=== PATIENT | male | born 1985 | race American Indian/Alaskan Native ===

== ENCOUNTER 2019-07-14 19:54 | Emergency (ER) | payer SELFPAY ==
--- NOTE | 2019-07-14 21:16 | XRay Report ---
CHEST 2 VIEWS INDICATION: cough x2 wks. COMPARISON: None FINDINGS: Support devices: None. Heart: Within normal limits. Lungs: Patchy airspace process present right upper lobe. Bronchovascular markings are prominent Pleur a: No significant pleural effusion. No pneumothorax. Additional findings: None. IMPRESSION: 1. Airspace process right upper lobe, worrisome for pneumonia Signer Name: Babak Angeles MD Signed: 07/14/2019 9:11 PM Workstation Name: [id number]
[2019-07-14 21:19] VITALS: BP 137/90
--- NOTE | 2019-07-14 21:39 | Emergency Department Report ---
- General Chief Complaint: Upper Respiratory Infection Stated Complaint: SOB/DRY COUGH Time Seen by Provider: 07/14/19 20:29 Source: patient Mode of arrival: Ambulatory Limitations: No Limitations - History of Present Illness Initial Comments: Patient is a 34-year-old male presents emergency room with complaints of a dry cough that began a week ago. He states that over the last couple days he has not been able to smell or taste very much. He states that occasionally he does feel short of breath. He denies any nausea, vomiting, fever, diarrhea, sore throat, ear pain. He denies any known sick contacts. He denies any recent travel. He denies any past medical history or allergies to medications. He is a non-smoker. He states that he does drink twice a week. - Related Data Previous Rx's Medication Instructions Recorded Last Taken Type Amoxicillin/Potassium Clav 1 each PO BID 7 Days #14 tablet 07/14/19 Unknown Rx [Augmentin 875-125 Tablet] Azithromycin [Zithromax TAB] 250 mg PO QDAY 5 Days #6 tablet 07/14/19 Unknown Rx Hydroxychloroquine [Plaquenil] 200 mg PO QDAY 5 Days #12 tablet 07/14/19 Unknown Rx Zinc Sulfate 220 mg PO DAILY 5 Days #5 capsule 07/14/19 Unknown Rx Allergies Allergy/AdvReac Type Severity Reaction Status Date / Time shellfish derived Allergy Swelling Verified 07/14/19 20:02 ED Review of Systems ROS: Stated complaint: SOB/DRY COUGH Other details as noted in HPI Comment: All other systems reviewed and negative ED Past Medical Hx - Past Medical History Previous Medical History?: No - Surgical History Past Surgical History?: No - Social History Smoking Status: Never Smoker Substance Use Type: Alcohol - Medications Home Medications: Home Medications Medication Instructions Recorded Confirmed Last Taken Type Amoxicillin/Potassium Clav 1 each PO BID 7 Days #14 tablet 07/14/19 Unknown Rx [Augmentin 875-125 Tablet] Azithromycin [Zithromax TAB] 250 mg PO QDAY 5 Days #6 tablet 07/14/19 Unknown Rx Hydroxychloroquine [Plaquenil] 200 mg PO QDAY 5 Days #12 tablet 07/14/19 Unknown Rx Zinc Sulfate 220 mg PO DAILY 5 Days #5 capsule 07/14/19 Unknown Rx ED Physical Exam - General Limitations: No Limitations General appearance: alert, in no apparent distress - Head Head exam: Present: atraumatic, normocephalic - Eye Eye exam: Present: normal appearance - ENT ENT exam: Present: mucous membranes moist - Respiratory Respiratory exam: Present: normal lung sounds bilaterally. Absent: respiratory distress, wheezes, rales, rhonchi, stridor, chest wall tenderness, accessory muscle use, decreased breath sounds, prolonged expiratory - Cardiovascular Cardiovascular Exam: Present: normal rhythm, tachycardia, normal heart sounds. Absent: systolic murmur, diastolic murmur, rubs, gallop - Neurological Exam Neurological exam: Present: alert, oriented X3 - Psychiatric Psychiatric exam: Present: normal affect, normal mood - Skin Skin exam: Present: warm, dry, intact ED Course Vital Signs 07/14/19 07/14/19 20:02 21:18 Temperature 99.2 F 98.1 F Pulse Rate 100 H 93 H Respiratory 18 17 Rate Blood Pressure 170/97 Blood Pressure 137/90 [Right] O2 Sat by Pulse 94 97 Oximetry ED Medical Decision Making - Lab Data Result diagrams: 07/14/19 21:20 07/14/19 21:20 Lab Results 07/14/19 07/14/19 07/14/19 Range/Units 21:20 21:20 21:20 WBC 3.7 L (4.5-11.0) K/mm3 RBC 5.82 H (3.65-5.03) M/mm3 Hgb 14.8 (11.8-15.2) gm/dl Hct 45.5 (35.5-45.6) % MCV 78 L (84-94) fl MCH 25 L (28-32) pg MCHC 33 (32-34) % RDW 14.6 (13.2-15.2) % Plt Count 169 (140-440) K/mm3 Lymph % (Auto) 37.2 H (13.4-35.0) % [place] % (Auto) 11.3 H (0.0-7.3) % Eos % (Auto) 1.2 (0.0-4.3) % Baso % (Auto) 0.5 (0.0-1.8) % Lymph # 1.4 (1.2-5.4) K/mm3 [place] # 0.4 (0.0-0.8) K/mm3 Eos # 0.0 (0.0-0.4) K/mm3 Baso # 0.0 (0.0-0.1) K/mm3 Seg Neutrophils % 49.8 (40.0-70.0) % Seg Neutrophils # 1.8 (1.8-7.7) K/mm3 Sodium 140 (137-145) mmol/L Potassium 3.8 (3.6-5.0) mmol/L Chloride 102.3 (98-107) mmol/L Carbon Dioxide 21 L (22-30) mmol/L Anion Gap 21 mmol/L BUN 12 (9-20) mg/dL Creatinine 0.9 (0.8-1.5) mg/dL Estimated GFR > 60 ml/min BUN/Creatinine Ratio 13 % Glucose 104 H (75-100) mg/dL Calcium 9.4 (8.4-10.2) mg/dL Ferritin 185.1 (13.0-400.0) ng/mL Total Bilirubin 0.30 (0.1-1.2) mg/dL AST 33 (5-40) units/L ALT 38 (7-56) units/L Alkaline Phosphatase 70 (35-129) units/L Lactate Dehydrogenase 255 H (91-180) units/L C-Reactive Protein 0.50 (0.00-1.30) mg/dL Total Protein 7.7 (6.3-8.2) g/dL Albumin 4.3 (3.9-5) g/dL Albumin/Globulin Ratio 1.3 % - EKG Data EKG shows normal: sinus rhythm, axis, intervals, QRS complexes, ST-T waves Rate: normal - EKG Data 07/14/19 23:19 no STEMI QTc is 435 - Radiology Data Radiology results: report reviewed CHEST 2 VIEWS INDICATION: cough x2 wks. COMPARISON: None FINDINGS: Support devices: None. Heart: Within normal limits. Lungs: Patchy airspace process present right upper lobe. Bronchovascular markings are prominent Pleura: No significant pleural effusion. No pneumothorax. Additional findings: None. IMPRESSION: 1. Airspace process right upper lobe, worrisome for pneumonia Signer Name: Babak Angeles MD Signed: 07/14/2019 9:11 PM Workstation Name: [id number] Transcribed By: TOM Dictated By: Babak Angeles MD Electronically Authenticated By: Babak Angeles MD Signed Date/Time: 07/14/192110 DD/ 10 TD/TT: - Medical Decision Making Patient is a 34-year-old male presents emergency room with complaints of a dry cough that began a week ago. He states that over the last couple days he has not been able to smell or taste very much. He states that occasionally he does feel short of breath. He denies any nausea, vomiting, fever, diarrhea, sore throat, ear pain. He denies any known sick contacts. He denies any recent travel. He denies any past medical history or allergies to medications. He is a non-smoker. He states that he does drink twice a week. Initial vitals with mild tachycardia, oxygen saturation was 94% on room air. On repeat heart rate is normal and oxygen saturation is 97%. CXR: 1. Airspace process right upper lobe, worrisome for pneumonia. Labs with mildly decreased white blood cell count, increased lymphocytes, elevated LDH. Patient was ambulated and the emergency department for 6 minutes and maintain oxygen saturation between 94 and 97% on room air and did not get short of breath. Due to being in the middle of a COVID 19 pandemic, COVID 19 could be the cause of patient's pneumonia, we do not have rapid testing at this facility. Patient under investigation form filled out with the [facility] and it was scanned into the patient's chart as well. discussed case with Dr. Carr, ER attending who re commended community-acquired pneumonia treatment and to treat patient with Plaquenil and zinc. Screening EKG performed due to treatment and QTc is 435. Patient given prescription for Augmentin, azithromycin, Plaquenil, zinc. advisd pt Please take medication as prescribed. Increase your water intake. May get a pulse oximetry [id number] to use at home and to watch your oxygen saturation, your saturation should be above 94%. Please return to the emergency room immediately for any new or worsening symptoms including but not limited to worsening shortness of breath, high fevers, unable to tolerate by mouth intake, chest pain, dizziness, passing out, etc. Please self quarantine for 2 weeks and do not go out in public. If you are around others at home please wear a mask. Please wash your hands frequently and wipe everything down. If you must cough or sneeze do so in a napkin and throw it away and immediately wash your hands. - Differential Diagnosis PNA, URI, bronchitis, viral syndrome, COVID-19 Critical care attestation.: If time is entered above; I have spent that time in minutes in the direct care of this critically ill patient, excluding procedure time. ED Disposition Clinical Impression: SOB (shortness of breath), Dry cough, Suspected COVID-19 virus infection Pneumonia Qualifiers: Pneumonia type: due to unspecified organism Laterality: right Lung location: upper lobe of lung Qualified Code(s): J18.9 - Pneumonia, unspecified organism Disposition: TO HOME OR SELFCARE Is pt being admited?: No Does the pt Need Aspirin: No Condition: Stable Instructions: COVID-19, Community-acquired Pneumonia (ED) Additional Instructions: Please take medication as prescribed. Increase your water intake. May get a pulse oximetry [id number] to use at home and to watch your oxygen saturation, your saturation should be above 94%. Please return to the emergency room immediately for any new or worsening symptoms including but not limited to worsening shortness of breath, high fevers, unable to tolerate by mouth intake, chest pain, dizziness, passing out, etc. Please self quarantine for 2 weeks and do not go out in public. If you are around others at home please wear a mask. Please wash your hands frequently and wipe everything down. If you must cough or sneeze do so in a napkin and throw it away and immediately wash your hands. Prescriptions: Amoxicillin/Potassium Clav [Augmentin 875-125 Tablet] 1 each PO BID 7 Days #14 tablet Hydroxychloroquine [Plaquenil] 200 mg PO QDAY 5 Days #12 tablet Zinc Sulfate 220 mg PO DAILY 5 Days #5 capsule Azithromycin [Zithromax TAB] 250 mg PO QDAY 5 Days #6 tablet Referrals: SAM MONTEZ MD [Staff Physician] - 2-3 Days [facility] [Outside] - 2-3 Days [facility] [Outside] - 2-3 Days [facility] [Provider Group] - 2-3 Days Time of Disposition: 23:01 Print Language: ROMANSH
[2019-07-14 21:42] LABS: Basophils % (Auto) 0.5 % (0.0-1.8); Eosinophils % (Auto) 1.2 % (0.0-4.3); Hematocrit 45.5 % (35.5-45.6); Hemoglobin 14.8 gm/dl (11.8-15.2); Lymphocytes # (Auto) 1.4 K/mm3 (1.2-5.4); Lymphocytes % (Auto) 37.2 % (13.4-35.0); Mean Corpuscular HGB Conc 33 % (32-34); Mean Corpuscular Volume 78 fl (84-94); Monocytes # (Auto) 0.4 K/mm3 (0.0-0.8); Monocytes % (Auto) 11.3 % (0.0-7.3); Platelet Count 169 K/mm3 (140-440); Red Blood Count 5.82 M/mm3 (3.65-5.03); Red Cell Distribution Width 14.6 % (13.2-15.2)
[2019-07-14 22:00] LABS: Alanine Aminotransferase 38 units/L (7-56); Albumin 4.3 g/dL (3.9-5); BUN/Creatinine Ratio 13; Blood Urea Nitrogen 12 mg/dL (9-20); Calcium 9.4 mg/dL (8.4-10.2); Hemolysis Index 8
== END 2019-07-14 23:20 | disposition home or self-care (01) ==
LOC: ED 19:54
DX: J18.9 Pneumonia, unspecified organism (principal)
CPT/HCPCS: 36415; 71046; 80053; 82728; 83615; 85025; 86140; 93005; 93010